=== PATIENT | female | born 1945 | race Caucasian/White ===

== ENCOUNTER → 2019-04-29 09:40 | Outpatient (CLI) | payer MEDICARE, SELFPAY ==
--- NOTE | 2019-04-29 | DI.US.S_ITS ---
PROCEDURE: US ARTERIAL DUPLEX LE BI INDICATIONS: NO TIBIAL PULSE TECHNIQUE: Color and pulse Doppler interrogation was performed of both lower extremity arterial systems, with image documentation. COMPARISON: None. FINDINGS: Right lower extremity: Common femoral artery: 132 cm/sec, with triphasic flow. Deep femoral artery: 78 cm/sec, with triphasic flow. Proximal superficial femoral artery: 107 cm/sec, with biphasic flow. Mid superficial femoral artery: 97 cm/sec, with biphasic flow. Distal superficial femoral artery: 65 cm/sec, with biphasic flow. Popliteal artery: 62 cm/sec, with biphasic flow. Posterior tibial artery: 46-73 cm/sec, with biphasic flow. Anterior tibial artery/dorsalis pedis: 60-65 cm/sec, with a biphasic flow. Gonzalez-scale imaging description: Minimal soft plaque Left lower extremity: Common femoral artery: 132 cm/sec, with biphasic flow. Deep femoral artery: 74 cm/sec, with biphasic flow. Proximal superficial femoral artery: 87 cm/sec, with biphasic flow. Mid superficial femoral artery: 92 cm/sec, with biphasic flow. Distal superficial femoral artery: 71 cm/sec, with biphasic flow. Popliteal artery: 80 cm/sec, with biphasic flow. Posterior tibial artery: 71 cm/sec, with biphasic flow. Anterior tibial artery/dorsalis pedis: 77 cm/sec, with biphasic flow. Gonzalez-scale imaging description: Minimal soft plaque IMPRESSION: Only a small degree of soft plaque is identified within the lower extremity arterial vasculature bilaterally and no significant stenosis is found. Dictated by: Nader Williamson M.D. on 04/29/2019 at 13:31 Approved by: Nader Williamson M.D. on 04/29/2019 at 13:35
--- NOTE | 2019-04-29 | DI.MRI.S_ITS ---
PROCEDURE: MR HEAD/BRAIN WO/W CON INDICATIONS: HEADACHE NO TIBIAL PULSE LIVER DISEASE TECHNIQUE: Noncontrast axial T1 spin echo, axial T2 fast spin echo, sagittal and axial FLAIR, coronal T2 fast spin echo, axial gradient echo, axial diffusion and ADC through the brain. After the administration of contrast, axial and coronal T1 spin echo with fat saturation through the brain. COMPARISON: None. FINDINGS: Image quality: Excellent. CSF spaces: Basal cisterns are patent. No extra-axial fluid collections. Ventricles are normal in size and shape. Brain: No midline shift. No intracranial bleeds or masses. No abnormal intracranial enhancement. There is cerebral volume loss for age. Scattered foci of T2 hyperintensity can be seen within the periventricular and deep white matter. At the involvement of the corpus callosum is seen. The brainstem appears normal. Diffusion-weighted images demonstrate no acute ischemic insults. No chronic ischemic insults. Normal intravascular flow voids are present. Skull and face: Calvarial marrow is normal in signal. Orbits appear normal. Note is made of bilateral lens replacements. Sinuses: Sinuses and mastoids appear clear. IMPRESSION: Foci of T2 hyperintensity are seen within the white matter. In a patient of this age, they are statistically most likely related to chronic small vessel ischemic change. No masses or abnormal enhancement can be seen. Age-appropriate brain parenchymal volume loss can be seen. Dictated by: Chico Douglas M.D. on 04/29/2019 at 11:12 Approved by: Chico Douglas M.D. on 04/29/2019 at 11:14
--- NOTE | 2019-04-29 | DI.CT.S_ITS ---
PROCEDURE: CT ABDOMEN PELVIS W CON INDICATIONS: HEADACHE NO TIBIAL PULSE LIVER DISEASE TECHNIQUE: After the administration of oral and intravenous contrast, 5 mm thick sections acquired from the diaphragms to the symphysis. 5 mm thick coronal and sagittal reformats were performed. For radiation dose reduction, the following was used: automated exposure control, adjustment of mA and/or kV according to patient size. COMPARISON: None. FINDINGS: Image quality: Excellent. ABDOMEN: Lung bases: Lung bases are clear. Heart size is normal. Solid organs: Liver is normal in size and enhancement of the liver radiodensity is diffusely hypointense, consistent with prominent fatty infiltration. No focal liver mass lesion is seen, no biliary distention is present. Gallbladder appears previously resected. Pancreas enhances normally. Spleen is normal in size and enhancement. No adrenal nodules. Kidneys are normal in size and enhancement, without hydronephrosis. Peritoneum and bowel: Stomach, small bowel, and colon loops are normal in caliber and wall thickness. No free fluid or air. Nodes and vessels: No retroperitoneal or mesenteric adenopathy. Aorta and inferior vena cava are normal in caliber. Miscellaneous: No ventral hernias. PELVIS: Genitourinary: Bladder wall thickness is normal. Miscellaneous: No inguinal hernias or adenopathy. Bones: No suspicious bony lesions. No vertebral body compression fractures. IMPRESSION: Isolated finding of low density liver parenchyma consistent with relatively prominent diffuse fatty infiltration. No splenomegaly or ascites is found, no varices are present. Prior cholecystectomy, a source of recurrent occasional right-sided abdominal pain is not seen. Dictated by: Nader Williamson M.D. on 04/29/2019 at 13:41 Approved by: Nader Williamson M.D. on 04/29/2019 at 13:44
[2019-04-29 10:49] LABS: Blood Urea Nitrogen 19 mg/dL (7-17); Estimated Glomerular Filt Rate 54.3 mL/min (>60)
== END ==
PROVIDERS: Visit Provider Family Medicine Geriatric Medicine
DX: R51 Headache (principal); H81.49 Vertigo of central origin, unspecified ear; R43.0 Anosmia; R10.9 Unspecified abdominal pain; K75.9 Inflammatory liver disease, unspecified; R19.4 Change in bowel habit; M79.604 Pain in right leg; M79.605 Pain in left leg; Z90.49 Acquired absence of other specified parts of digestive tract
CPT/HCPCS: 36415; 70553; 74177; 82565; 84520; 93925; A9579; Q9967

== ENCOUNTER → 2019-08-13 07:43 | Outpatient (CLI) | payer MEDICARE, SELFPAY ==
--- NOTE | 2019-08-13 | DI.MRI.S_ITS ---
PROCEDURE: MR KNEE LT WO CON INDICATIONS: LEFT KNEE PAIN TECHNIQUE: Noncontrast sagittal PD fast spin echo and T2 fast spin echo with fat saturation, sagittal 3-D FLASH with fat saturation; coronal T1 spin echo and PD fast spin echo with fat saturation, and axial PD fast spin echo with fat saturation through the knee. COMPARISON: None. FINDINGS: Image quality: Excellent. Menisci: Lateral meniscal tear involving the body with abnormal signal extending to the inferior articular surface. Ill-defined tear involving the posterior root and posterior horn of the medial meniscus as well as the body, where there is extension of abnormal signal to the undersurface. There is also abnormal signal at the posterior meniscocapsular junction suggesting separation Cruciate ligaments: The anterior and posterior cruciate ligaments appear intact. Medial structures: There is medial bowing of the medial collateral ligament, with mild internal signal changes and no complete rupture. There is adjacent soft tissue edema. The appearance could reflect reactive changes to medial compartment pathology, versus low-grade sprain of the MCL. Pes anserinus tendons appear grossly unremarkable. Semimembranosus tendon appears intact. Lateral structures: The lateral collateral ligament, long and short heads of the biceps femoris tendon appear intact. The popliteus tendon appears normal; the popliteofibular ligament appears intact. The posterosuperior and anteroinferior popliteomeniscal fascicles appear intact. The arcuate and fabellofibular ligaments appear intact, on either side of the lateral inferior geniculate artery. Iliotibial band appears normal. Anterior structures: The quadriceps and patellar tendons appear intact. Cortical hypertrophy at the tibial tuberosity keeping with chronic Kashmir-Schlatter sequela. Patellar alignment is normal. No femoral trochlear dysplasia or ventral trochlear prominence. No edema in the infrapatellar fat pad. Bones and cartilage: No focal marrow contusion or discrete low signal fracture line. Within the medial compartment, diffuse surface fraying of the femoral and tibial articular cartilage Within the lateral compartment, diffuse partial-thickness loss of the femoral and tibial articular cartilage Within the patellofemoral compartment, diffuse partial-thickness loss of the femoral trochlear and patellar articular cartilage. Subchondral cystic changes and marrow edema. Joint space: Moderate joint effusion. No Garza's cyst. No specific evidence of intra-articular loose body. IMPRESSION: Ill-defined medial meniscal tear involving the posterior root, posterior horn and body. Ill-defined signal changes at the posterior meniscocapsular junction raising the possibility of separation/peripheral component of the tear. Lateral meniscal undersurface tear involving the body. Moderate joint effusion. 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 Dictated by: Krzysztof Mensah M.D. on 08/13/2019 at 11:10 Approved by: Krzysztof Mensah M.D. on 08/13/2019 at 11:23
== END ==
PROVIDERS: PCP Family Medicine Geriatric Medicine; Visit Provider Physician Assistant
DX: M25.562 Pain in left knee (principal); S83.282A Other tear of lateral meniscus, current injury, left knee, initial encounter; S83.242A Other tear of medial meniscus, current injury, left knee, initial encounter; M25.462 Effusion, left knee; M17.12 Unilateral primary osteoarthritis, left knee
CPT/HCPCS: 73721

== ENCOUNTER → 2021-01-13 12:06 | Outpatient (CLI) | payer MEDICARE, SELFPAY ==
--- NOTE | 2021-01-13 12:07 | DI.MRI.S_ITS ---
PROCEDURE: MR LUMBAR SPINE WO CON INDICATIONS: post lami syndrome TECHNIQUE: Noncontrast sagittal T1 spin echo and T2 fast echo, sagittal STIR, axial T1 and T2 fast spin echo through the lumbar spine. In cases with scoliosis, additional coronal T2 fast spin echo may be performed. COMPARISON: Outside Facility, RG, MRI L-SPINE W/O CONTRAST, 10/15/2013, 8:09. , CT, CT ABDOMEN PELVIS W CON, 04/29/2019, 12:55. Outside Facility, RG, XR L-SPINE 4-6V, 12/15/2020, 13:39. FINDINGS: Image quality: Excellent. Alignment and Curvature: There is minimal anterolisthesis seen at the L2-L3 level. Bone Marrow: Marrow is of normal overall signal. Scattered foci are seen, which are hyperintense on T1-weighted and T2-weighted imaging, which are most consistent with benign vertebral body hemangiomas. No acute vertebral body compression fractures. Spinal Cord: Conus medullaris terminates at the T12-L1 level. Visualized cord demonstrates normal signal and size. Paraspinous Soft Tissues: No paravertebral masses. T12-L1: Normal appearance. L1-L2: No significant abnormality is seen. L2-L3: Mild loss of disc height is seen. Loss of disc signal is seen. Moderate disc bulge is seen, with a central disc protrusion. Moderate to prominent facet hypertrophy is seen at this level. Associated hypertrophy of the ligamentum flavum can be seen. Moderate bilateral neural foraminal narrowing is seen. Moderate central canal narrowing is seen. These imaging findings have progressed compared to the prior study. L3-L4: The disc height is well-preserved. Loss of disc signal is seen at this level. Moderate generalized disc bulge is seen. There is a central/right disc extrusion, with superior migration of the disc material, as on series 3, image 9 and on series 7 image 3. Moderate to prominent facet hypertrophy is seen. Associated hypertrophy of the ligamentum flavum can be seen. Moderate bilateral neural foraminal narrowing is seen. Moderate to severe central canal narrowing is seen. When compared to 2013, the disc extrusion is new and the degenerative changes have progressed. L4-L5: Moderate loss of disc height is seen. Loss of disc signal is seen. Reactive marrow endplate changes are seen, which are hyperintense on T1-weighted and T2-weighted imaging and most consistent with fatty metaplasia (Modic type II changes). Moderate disc bulge is seen, which is eccentric to the right. Prior right hemilaminectomy change can be seen. At least moderate facet hypertrophy is seen at this level. There is moderate left-sided and [id number] right-sided neural foraminal narrowing seen. The central canal is widely patent. These degenerative changes are slightly progressed compared to 2013. L5-S1: Moderate loss of disc height is seen. Loss of disc signal is seen. Moderate disc bulge is seen, which is eccentric to the left. There is moderate to prominent facet hypertrophy seen, right worse than left. There is moderate to severe left-sided and at least moderate right-sided neural foraminal narrowing seen. A degree of compression can be seen upon the exiting nerve roots, left worse than right. Mild central canal narrowing is seen. Compared to 2013, these degenerative changes are slightly progressed. IMPRESSION: Multiple levels of lumbar spine degenerative change are seen, which are most prominent inferiorly. The degenerative changes have progressed compared to 2013. Dictated by: Chico Douglas M.D. on 01/13/2021 at 12:48 Approved by: Chico Douglas M.D. on 01/13/2021 at 12:54
== END ==
PROVIDERS: PCP Family Medicine; Referring Provider Physical Medicine & Rehabilitation; Visit Provider Physical Medicine & Rehabilitation
DX: M48.061 Spinal stenosis, lumbar region without neurogenic claudication (principal); M96.1 Postlaminectomy syndrome, not elsewhere classified; M47.816 Spondylosis without myelopathy or radiculopathy, lumbar region; M47.817 Spondylosis without myelopathy or radiculopathy, lumbosacral region
CPT/HCPCS: 72148

== ENCOUNTER 2021-02-16 12:29 | Outpatient (CLI) | payer MEDICARE, SELFPAY ==
[2021-02-16] VITALS (9 sets, daily range): BP systolic 124–180; BP diastolic 61–85; PULSE 56–61; RESP 13–24; TEMP 36.6–36.9; O2SAT 94–99
--- NOTE | 2021-02-16 12:34 | DI.RAD.S_ITS ---
PROCEDURE: PAIN L INTERLAMINAR/CAUDAL INJ INDICATIONS: SPONDYLOSIS COMPARISON: None. FINDINGS: Fluoroscopic spot filming was performed to verify placement of spinal needles at the L3-4 level(s), as labeled on the films. Appropriate location(s) of the needle tip(s) was confirmed by injection of iodinated contrast. Dictated by: Krzysztof Mensah M.D. on 02/16/2021 at 14:58 Approved by: Krzysztof Mensah M.D. on 02/16/2021 at 14:58
[2021-02-16] MEDS: MIDAZOLAM 5 MG/5 ML VIAL IV (13:09)
[2021-02-16] MEDS: BUPIVACAINE 0.25% (PF) VIAL 2 ML INJ (13:16)
[2021-02-16] MEDS: DEXAMETHASONE 10 MG/ML VIAL 20 MG INJ (13:17)
[2021-02-16] MEDS: BETAMETHASONE 30 MG/5 ML MDV 6 MG INJ (13:17)
[2021-02-16] MEDS: IOPAMIDOL 15 ML VIAL 3 ML INJ (13:17)
--- NOTE | 2021-02-16 13:28 | P.PCN_ITS ---
Date/Time/Diagnoses Date of procedure: 02/16/21 Time of procedure: 13:28 Pre-procedure diagnosis: 1. HNP WITH RADICULAR FEATURES, 2. MULTILEVEL CENTRAL STENOSIS, Post-procedure diagnosis: same Procedure Notes Procedure: 1. FLUOROSCOPICALLY GUIDED CONTRAST CONTROLLED INTERLAMINAR EPIDURAL STEROID INJECTION - L3/4 Indications: Marisol is referred by Dr. Guardado for treatment of Bilateral Foraminal Stenosis L>R LE symptoms. Physician: Mykel Heath Total Fluoroscopy time (seconds): 8 Total sedation minutes: 11 Complications: none Procedure in detail & Post-procedure care: FINDINGS Multilevel Central Spinal Stenosis with Nerve Root Compression DESCRIPTION OF PROCEDURE Fluoroscopically guided, contrast-controlled L3/4 translaminar epidural steroid injection. Following review of allergy and review of potential side effects and complications, including, but not necessarily limited to, infection, allergic reaction, local tissue breakdown, temporary as well as permanent nerve injury, paralysis, stroke and possible , the patient indicated that the patient understood and agreed to proceed. An informed consent document was signed by the patient, witnessed by a nurse, and placed in the patient's chart. Additionally, other treatment options including modalities, medications, and physical therapy were reviewed with the patient. After review of previous anaesthesic history and IV conscious sedation the patient was deemed safe to proceed with today?s procedure with IV conscious sedation as ASA class II designation. Safety time-out was performed to confirm patient ID, procedure to be performed and site of procedure. IV sedation was accomplished with a combination of 2mg of Versed was administered by the RN after DO order, titrated to patient comfort during the course of the procedure while the patient remained responsive to all verbal commands. In the prone position, following sterile prep and drape of the lumbar region, the L3/4 translaminar space was identified fluoroscopically. The skin was anesthetized via a 25-gauge, 1.5-inch needle with 1% lidocaine solution. At this point, a 22-gauge short bevel spinal needle was atraumatically introduced and advanced under fluoroscopic guidance into the region of the L3/4 translaminar space. Depth was confirmed on lateral view. Radiological data, including multiple fluoroscopic views of the lumbar spine, reveal a spinal needle at the L3/4 translaminar space. Lateral views then show placement of the needle in the epidural space. Subsequent views show contrast material flowing superiorly and inferiorly in the epidural space. No vascular or intrathecal uptake is observed. At this point, using loss of resistance technique with saline and air, the epidural space was entered. This was confirmed following negative aspiration with injection of approximately 1.5 cc of Isovue 200, showing excellent epidural flow without vascular or intrathecal uptake. At this point, 1cc of 1% lidocaine solution combined with 3cc or 20mg of dexamethasone and 6mg of betamethasone was injected without incident. The patient tolerated the procedure well without signs or symptoms of complications prior to transfer to the recovery area continued monitoring without incident. The patient was then transferred to the recovery area where they were observed for an appropriate period of time after the injection. The patient reported a VAS score of 6 prior to the procedure and a post- procedure VAS of 0. POST OP INSTRUCTIONS The patient was provided a Pain Log to continue to record their response to the target-specific procedure prior to follow-up visit with their referring physician. Additionally, specific post-injection care instructions and a contact number to our office were provided if concerns arise regarding possible complications associated with the procedure are suspected.
== END 2021-02-16 13:41 | disposition home or self-care (01) ==
LOC: RAD 12:33
PROVIDERS: PCP Family Medicine; Referring Provider Physical Medicine & Rehabilitation; Visit Provider Physical Medicine & Rehabilitation
DX: M51.16 Intervertebral disc disorders with radiculopathy, lumbar region (principal); M48.061 Spinal stenosis, lumbar region without neurogenic claudication
CPT/HCPCS: 62323; 99152; J0702; J1100; J2250; J3010

== ENCOUNTER 2021-05-09 10:20 | Outpatient (CLI) | payer MEDICARE, SELFPAY ==
[2021-05-09] VITALS (11 sets, daily range): BP systolic 120–182; BP diastolic 58–70; PULSE 54–69; RESP 12–19; TEMP 36.4; O2SAT 95–100
--- NOTE | 2021-05-09 10:23 | DI.RAD.S_ITS ---
PROCEDURE: PAIN L/S TRANSFORAM INJECT RENETTA COMPARISON: [facility], XA, PAIN L INTERLAMINAR/CAUDAL INJ, 02/16/2021, 13:15. INDICATIONS: SPONDYLOSIS FINDINGS: Fluoroscopic spot filming was performed to verify placement of spinal needles on both sides at the L5-S1 level, as labeled on the films. Appropriate location of the needle tips was confirmed by injection of iodinated contrast. IMPRESSION: No significant intraprocedural abnormality. Dictated by: Chico Douglas M.D. on 05/09/2021 at 11:47 Approved by: Chico Douglas M.D. on 05/09/2021 at 11:48
[2021-05-09] MEDS: fentaNYL 100 MCG/2 ML INJ 50 MCG IV (11:14)
[2021-05-09] MEDS: BUPIVACAINE 0.25% (PF) VIAL 2 ML INJ (11:21)
[2021-05-09] MEDS: IOPAMIDOL 15 ML VIAL 3 ML INJ (11:21)
[2021-05-09] MEDS: BETAMETHASONE 30 MG/5 ML MDV 6 MG INJ (11:21)
[2021-05-09] MEDS: DEXAMETHASONE 10 MG/ML VIAL 20 MG INJ (11:22)
[2021-05-09] MEDS: MIDAZOLAM 5 MG/5 ML VIAL IV (11:27)
--- NOTE | 2021-05-09 11:37 | PM.PROC.IR.1 ---
Date/Time/Diagnoses Date of procedure: 05/09/21 Time of procedure: 11:37 Pre-procedure diagnosis: 1. FORAMINAL STENOSIS WITH LE SYMPTOMS Post-procedure diagnosis: same Procedure Notes Procedure: 1. FLUOROSCOPICALLY GUIDED CONTRAST CONTROLLED TRANSFORAMINAL EPIDURAL STEROID INJECTION - BILATERAL L5/S1 TFESI Indications: Marisol is referred by Dr. Guardado for treatment of Foraminal Stenosis with bilateral LE Symptoms Physician: Mykel Heath Total Fluoroscopy time (seconds): 20 Total sedation minutes: 17 Complications: none Procedure in detail & Post-procedure care: FINDINGS Foraminal Nerve Root Compression secondary to disc disease and facet hypertrophy DESCRIPTION OF PROCEDURE Following review of allergy and review of potential side effects and complications, including, but not necessarily limited to, infection, allergic reaction, local tissue breakdown, stroke, temporary or permanent nerve injury, paralysis, and possible , the patient indicated that the patient understood and agreed to proceed. An informed consent document was signed by the patient, witnessed by a nurse, and placed in the patient's chart. Additionally, other treatment options including medications, modalities, and physical therapy were reviewed with the patient. After review of previous anaesthesic history and IV conscious sedation the patient was deemed safe to proceed with today?s procedure with IV conscious sedation as ASA class II designation. Safety time-out was performed to confirm patient ID, procedure to be performed and site of procedure. IV sedation was accomplished with a combination of 3mg of Versed and 50mcg of Fentanyl was administered by the RN after DO order, titrated to patient comfort during the course of the procedure while the patient remained responsive to all verbal commands In the prone position following sterile prep and drape of the lumbar region, the right L5/S1 posterior neuroforamen was identified fluoroscopically. The skin was anesthetized via a 25-gauge 1.5-inch needle with 1% lidocaine solution. At this point, a 25-gauge 3.5-inch spinal needle was atraumatically introduced and advanced under fluoroscopic guidance through the posterior right L5/S1 neuroforamen to approximately the anterior aspect of the canal. Depth was confirmed on lateral view. Following negative aspiration, injection of approximately 1.5cc of Isovue 200 under live fluoroscopy in the AP view confirmed excellent flow along the nerve root, into the epidural space without vascular or intrathecal uptake observed Radiological data, including multiple fluoroscopic views of the lumbosacral spine, reveal a spinal needle at the right L5/S1 posterior neuroforamen. Subsequent views show flow of contrast material flowing superiorly and inferiorly along the nerve root confirming epidural flow. Subsequently, a test dose of 1.5cc of 1% lidocaine solution was administered and patient was observed for two minutes for signs or symptoms of complications, including abdominal pain, shortness of breath, bilateral upper or lower extremity weakness, nausea and vomiting, prior to steroid injection. At this point, a total of 3cc or 20mg of dexamethasone and 6mg betamethasone was injected without incident. Attention was then refocused to the left L5/S1 level where the identical procedure was replicated. The procedure tolerated the procedure well without signs or symptoms of complications prior to transfer to the recovery area continued monitoring without incident. The patient was then transferred to the recovery area where they were observed for an appropriate time after the injection. The patient reported a VAS score of 7 prior to the procedure and a post-procedure VAS of 0. POST OP INSTRUCTIONS The patient was provided a Pain Log to continue to record their response to the target-specific procedure prior to follow-up visit with their referring physician. Additionally, specific post-injection care instructions and a contact number to our office were provided if concerns arise regarding possible complications associated with the procedure are suspected.
--- NOTE | 2021-05-09 13:27 | PC.NURSE ---
Pt sleepy, alert nad oriented with conversation. and RN spoke in person- promised to keep pt in car on ferry [place] to [facility] [place]. [place] wanting to make earlier ferry [place] 1400. Dr Heath aware pt's giat slightly slow and wobbly- ambualting well with assist x1. and pt onboard with plan to remain in car. ok'd discharge home.
== END 2021-05-09 12:05 | disposition home or self-care (01) ==
LOC: RAD 10:21
PROVIDERS: PCP Family Medicine; Referring Provider Physical Medicine & Rehabilitation; Visit Provider Physical Medicine & Rehabilitation
DX: M54.17 Radiculopathy, lumbosacral region (principal); M96.1 Postlaminectomy syndrome, not elsewhere classified; M48.07 Spinal stenosis, lumbosacral region
CPT/HCPCS: 64483; 99152; J0702; J1100; J2250; J3010